=== PATIENT | male | born 1955 | race Caucasian/White ===

== ENCOUNTER → 2021-01-12 09:09 | Outpatient (CLI) | payer MEDICARE, OTHER, SELFPAY ==
[2021-01-12 10:34] LABS: COVID19 -Nasal RAPID Negative (Negative)
== END ==
PROVIDERS: Family Provider Family Medicine; PCP Family Medicine; Referring Provider Surgery; Visit Provider Surgery
DX: Z01.812 Encounter for preprocedural laboratory examination (principal); Z20.822 Contact with and (suspected) exposure to COVID-19
CPT/HCPCS: 87635

== ENCOUNTER 2021-01-13 07:18 | Day surgery (SDC) | payer MEDICARE, OTHER, SELFPAY ==
[2021-01-13] VITALS (9 sets, daily range): BP systolic 106–158; BP diastolic 62–76; PULSE 54–64; RESP 10–97; TEMP 36.3–36.6; O2SAT 12–99; BMI 25.0
[2021-01-13] MEDS: LACTATED RINGERS 1,000 ML 42 ML IV (07:45)
--- NOTE | 2021-01-13 08:15 | PM.PEDHP.1 ---
History of Present Illness History of Present Illness Date Patient Seen: 01/13/21 Time Patient Seen: 08:15 Chief complaint: SDC Narrative: Here for colon cancer screening, last scope was 10 years ago. No family history or symptoms concerning for colon cancer. 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) Family & Social History Family History: [id number]/15/21 by Pamela Long MD Tobacco & Substance Use Smoking Status: Never smoker Alcohol intake: never Meds Home Medications and Allergies Home Medications Medication Instructions Recorded Confirmed Type LORATADINE/PSEUDOEPHEDRINE 1 tab PO QDAY #0 11/28/11 01/13/21 History (Claritin-D 24 Hour Tablet) Fish Oil (Fish Oil 500 MG Softgel) 500 mg PO QDAY #0 12/04/12 01/13/21 History Vitamin E (VITAMIN E) 200 units PO QDAY #0 sgl 12/04/12 01/13/21 History ascorbic acid (vitamin C) 500 mg 1,000 mg PO QDAY #0 tab 12/04/12 01/13/21 History tablet TIMOLOL MALEATE (BETIMOL) 1 drp OPHTH QDAY #0 01/25/16 01/13/21 History cholecalciferol (vitamin D3) 25 1,000 unit PO QDAY #0 tab 01/25/16 01/13/21 History mcg (1,000 unit) tablet (Vitamin D3) multivitamin (Multiple Vitamins) 1 tab PO QDAY #0 tab 01/25/16 01/13/21 History latanoprost 0.005 % eye drops 1 drp EYE-LEFT DAILY ml 07/11/18 10/15/21 History doxycycline hyclate 100 mg capsule 100 mg PO Q12H #20 cap 12/28/20 01/13/21 Rx sildenafil (pulm.hypertension) 20 60 mg PO DAILY #30 tab 12/28/20 01/13/21 Rx mg tablet (Revatio) sodium,potassium,mag sulfates 17.5 See Rx Instructions PO .COMPLEX 12/29/20 Rx gram-3.13 gram-1.6 gram oral soln #354 ml (Suprep Bowel Prep Kit) fluticasone propionate 50 15.8 ml NS QDAY PRN 01/13/21 01/13/21 History mcg/actuation nasal spray,suspension (Flonase Allergy Relief) Allergies Allergy/AdvReac Type Severity Reaction Status Date / Time rifampin [RIFAMPIN] Allergy Unknown HIVES,ITCHI Verified 10/28/20 11:07 NG animal dander [ANIMAL DANDER] AdvReac Mild CONGESTION, Verified 10/28/20 11:07 IRRITATION Review of Systems Review of Systems ROS: Yes All systems reviewed with the patient and are negative except as otherwise documented Exam - Pediatric Vital Signs Vital Signs: Vital Signs Temp Pulse Resp BP Pulse Ox 97.3 F L 63 14 158/65 H 99 01/13/21 07:39 01/13/21 07:39 01/13/21 07:39 01/13/21 07:39 01/13/21 07:39 General Appearance General appearance: well appearing Constitutional Constitutional: normal weight HEENT Head: normocephalic Additional Exam Additional findings: abdomen is benign Lungs bilaterally clear. Assessment & Plan Assessment & Plan narrative: colon cancer screening using colonoscopy and moderate sedation COVID-19 COVID-19 status: Negative Time Spent With Patient Time with patient: less than 30 minutes Critical Care time: I spent a total of [] minutes of critical care time on this patient's care today; this time is exclusive of procedural time.
--- NOTE | 2021-01-13 08:18 | PM.OP.ENDO ---
Operative Date/Time/Diagnoses Date of procedure: 01/13/21 Time of procedure: 08:18 Pre-op diagnosis: colon cancer screening Post-op diagnosis: same Procedure & Clinicians Study performed: Colonoscopy with moderate sedation Same procedure as scheduled: Yes Indications: Colon cancer screening Surgeon: Pamela Long Procedure Notes SCOAP/Timeout: Done Procedure in detail: Preop diagnosis: Colon cancer screening Postop diagnosis: Same Operative procedure: Colonoscopy with moderate sedation Surgeon: Corry Long MD Findings: Normal colonoscopy. No polyps, no diverticulosis. It was extremely torturous Anesthetic: 150 micro g of fentanyl 8 mg Versed Procedure: Patient placed in lateral position. Rectal exam is performed showing normal tone no masses. Colonoscope was inserted into the rectum and advanced to the ileocecal valve with minimal difficulty. External pressure was applied due to the tortuous nature of his colon. Retroflex was included in the cecum and the rectum. Impression: No polyps identified. No significant diverticulosis. Plan: Repeat colonoscopy in 10 years unless otherwise indicated by change in family history or clinical condition Sedation minutes: 25 Specimen(s): none sent Complications: none Impression: No polyps, no significant diverticulosis. Post-procedure Recommendations: Colonscopy in 10 years Plan for aftercare: Home Follow up: as needed Disposition: PACU
[2021-01-13] MEDS: fentaNYL 250 MCG/5 ML INJ IV (08:46)
[2021-01-13] MEDS: MIDAZOLAM 5 MG/5 ML VIAL IV (08:46)
--- NOTE | 2021-01-13 09:36 | SUR.PHASEI ---
0930 Pt transferred to jaime Hubbard
== END 2021-01-13 09:30 | disposition home or self-care (01) ==
PROVIDERS: Family Provider Family Medicine; PCP Family Medicine; Referring Provider Surgery; Visit Provider Surgery
PROC: 0DJD8ZZ Inspection of Lower Intestinal Tract, Via Natural or Artificial Opening Endoscopic (ICD-10-PCS; CPT 45378; principal; 2021-01-13 08:30)
DX: Z12.11 Encounter for screening for malignant neoplasm of colon (principal)
CPT/HCPCS: G0121; 99152; 99153; J2250; J3010

== ENCOUNTER → 2021-12-08 06:57 | Outpatient (CLI) | payer MEDICARE, OTHER, SELFPAY ==
[2021-12-08 08:41] LABS: Add Manual Diff / Slide Review NO; Basophils Absolute Auto 0 /uL (0-100); Basophils Percent Auto 0.7 % (0-2); Eosinophils Absolute Auto 200 /uL (0-450); Eosinophils Percent Auto 3.6 % (2-4); Hematocrit 43.9 % (41-53); Lymphocytes Absolute Auto 1700 /uL (1100-4500); Lymphocytes Percent Auto 32.4 % (25-40); Mean Corpuscular HGB Conc 34.1 % (30-36); Mean Corpuscular Hemoglobin 28.5 PG (26-34); Mean Corpuscular Volume 83.7 fL (80-100); Monocytes Absolute Auto 400 /uL (0-900); Monocytes Percent Auto 7.3 % (3-14); Neutrophils Absolute Auto 3000 /uL (1500-7000); Platelet Count 275 X10^3/uL (150-400); Red Blood Cell Count 5.25 X10^6/uL (4.5-5.9); Red Cell Distribution Width 13.6 % (11.6-14.8); White Blood Cell Count 5.4 X10^3/uL (4.5-11.0)
[2021-12-08 09:24] LABS: Alanine Aminotransferase 50 IU/L (<50); Albumin 4.1 g/dL (3.5-5.0); Albumin Globulin Ratio 1.5 (1.0-2.8); Alkaline Phosphatase 48 U/L (38-126); Aspartate Aminotransferase 32 IU/L (17-59); BUN Creatinine Ratio 18.9 (6-22); Bilirubin Total 0.5 mg/dL (0.2-1.3); Blood Urea Nitrogen 14 mg/dL (9-20); Calcium 9.1 mg/dL (8.4-10.2); Carbon Dioxide 29 mmol/L (22-32); Chloride 103 mmol/L (98-107); Cholesterol 187 mg/dL (140-199); Estimated Glomerular Filt Rate > 60 mL/min (>60); Globulin 2.7 g/dL (1.7-4.1); Glucose 91 mg/dL (80-110); HDL Cholesterol 33 mg/dL (40-60); HEMOLYSIS < 15 (0-50); LDL Cholesterol Calculated 121 mg/dL (<100); Potassium 4.5 mmol/L (3.4-5.1); Sodium 139 mmol/L (137-145); Total Protein 6.8 g/dL (6.3-8.2); Triglycerides 165 mg/dL (35-150)
[2021-12-08 09:37] LABS: TSH w/ Reflex to FT4 2.11 uIU/mL (0.47-4.68)
[2021-12-11 09:36] LABS: Prostate Specific Antigen < 0.064 ng/mL (0.10-4.00)
== END ==
PROVIDERS: Family Provider Family Medicine; PCP Family Medicine; Referring Provider Family Medicine; Visit Provider Family Medicine
DX: C61 Malignant neoplasm of prostate (principal); E78.2 Mixed hyperlipidemia
CPT/HCPCS: 36415; 80053; 80061; 84153; 84443; 85025

== ENCOUNTER → 2023-11-28 07:59 | Outpatient (CLI) | payer MEDICARE, OTHER, SELFPAY ==
[2023-11-28 10:02] LABS: Add Manual Diff / Slide Review NO; Basophils Absolute Auto 100 /uL (0-100); Basophils Percent Auto 0.8 % (0-2); Eosinophils Absolute Auto 100 /uL (0-450); Eosinophils Percent Auto 1.7 % (2-4); Hematocrit 44.1 % (41-53); Hemoglobin 15.1 g/dL (13.5-17.5); Lymphocytes Absolute Auto 1800 /uL (1100-4500); Mean Corpuscular HGB Conc 34.4 % (30-36); Mean Corpuscular Hemoglobin 28.9 PG (26-34); Mean Corpuscular Volume 84.2 fL (80-100); Monocytes Absolute Auto 700 /uL (0-900); Monocytes Percent Auto 10.1 % (3-14); Neutrophils Absolute Auto 4000 /uL (1500-7000); Neutrophils Percent Auto 60.4 % (50-75); Platelet Count 285 X10^3/uL (150-400); Red Blood Cell Count 5.23 X10^6/uL (4.5-5.9); Red Cell Distribution Width 13.9 % (11.6-14.8); White Blood Cell Count 6.7 X10^3/uL (4.5-11.0)
[2023-11-28 10:35] LABS: Cholesterol 205 mg/dL (140-199); HDL Cholesterol 37 mg/dL (40-60); LDL Cholesterol Calculated 130 mg/dL (<100); Triglycerides 192 mg/dL (35-150)
[2023-11-28 10:58] LABS: TSH w/ Reflex to FT4 1.53 uIU/mL (0.47-4.68)
[2023-11-28 11:03] LABS: Prostate Specific Antigen Scrn < 0.064 ng/mL (0.1-4.0)
== END ==
PROVIDERS: Family Provider Family Medicine; PCP Family Medicine; Referring Provider Family Medicine; Visit Provider Family Medicine
DX: Z12.5 Encounter for screening for malignant neoplasm of prostate (principal); E78.2 Mixed hyperlipidemia; H33.20 Serous retinal detachment, unspecified eye
CPT/HCPCS: 36415; 80061; 84443; 85025; G0103

== ENCOUNTER → 2024-12-11 10:13 | Outpatient (CLI) | payer MEDICARE, OTHER, SELFPAY | PROVIDERS: PCP Family Medicine; Referring Provider Physician Assistant; Visit Provider Physician Assistant | DX: E78.2 Mixed hyperlipidemia (principal) | CPT/HCPCS: 36415; 82172 ==